=== PATIENT | male | born 1955 | race African-American/Black ===

== ENCOUNTER 2025-04-24 02:58 | Inpatient (IN) | payer MEDICARE, OTHER ==
[~2025-04-24] VITALS: Ht 162.6 cm; Wt 59.2 kg
[2025-04-24] MEDS ORDERED: 0.9% SODIUM CHLORIDE 10 ML SYRINGE IVP PRN (03:45)
[2025-04-24] MEDS: SODIUM CHLORIDE 0.9% 1,150 ML IV ONE (04:05)
[2025-04-24 04:29] LABS: PLATELET COUNT (AUTO) 592 K/uL (150-450); RED BLOOD CELL COUNT(AUTO) 3.32 MIL/uL (4.50-5.90); RED CELL DISTRIBUTION WIDTH 21.3 % (11.5-14.5); WHITE BLOOD COUNT (AUTO) 16.1 K/uL (4.5-11.0)
[2025-04-24 04:43] LABS: LACTIC ACID 1.4 mmol/L (0.4-2.0)
[2025-04-24] MEDS: CefTRIAXone 1 GM/DEXTROSE 50 ML IV ONE (04:45)
[2025-04-24 04:46] LABS: CREATININE 0.65 mg/dL (0.60-1.30); GLUCOSE,RANDOM 110 mg/dL (70-110); SODIUM SERUM 139 mmol/L (136-145); UREA NITROGEN, BLOOD 16 mg/dL (7-18)
[2025-04-24 04:47] LABS: CALCIUM, TOTAL 9.5 mg/dL (8.8-10.5); GLOMERULAR FILTR. RATE CALC > 60 mL/min (>60)
[2025-04-24 05:52] LABS: APPEARANCE,URINE HAZY (CLEAR); GLUCOSE, URINE (UA) NEGATIVE (NEGATIVE); LEUKOCYTE ESTERASE ,URINE LARGE (NEGATIVE); NITRATE,URINE NEGATIVE (NEGATIVE); OCCULT BLOOD,URINE SMALL (NEGATIVE); SPECIFIC GRAVITIY, URINE 1.014 (1.003-1.030)
[2025-04-24 05:56] LABS: % IRON SATURATION 7.2 % (30-44); IRON, SERUM 7.0 mcg/dL (50-175)
[2025-04-24 06:02] LABS: SULFOSALICYLIC ACID,URINE 3+ (Negative)
[2025-04-24 06:03] LABS: SQUAMOUS EPITHELIAL CELL,UR Few /LPF (None Seen)
[2025-04-24] MEDS: SODIUM CHLORIDE 0.9% 500 ML IV ONE (07:00)
[2025-04-24] MEDS: LevETIRAcetam 1,000 MG in DEXTROSE 5%-WATER 100 ML IV SCH (07:40)
[2025-04-24] MEDS: PIPERACILLIN/TAZO 3.375 GM/D5W 50 ML IV SCH (07:41)
[2025-04-24] MEDS: ONDANSETRON HCL 4 MG/2 ML VIAL IVP PRN (07:43)
[2025-04-24] MEDS ORDERED: VANCOMYCIN 1GM/WATER(PEG/NADA) 200 ML IV SCH (08:00)
[2025-04-24] MEDS: VANCOMYCIN 1GM/WATER(PEG/NADA) 200 ML IV ONE (08:52)
[2025-04-24 10:15] VITALS: BP_SYST 102; BP_SYST 104; BP_DIAS 62; BP_DIAS 65; PULSE 99; RESP 18; TEMP 98.1; O2SAT 95
[2025-04-24 11:40] VITALS: BP 109/70; PULSE 113; RESP 19; TEMP 98.4; O2SAT 97
[2025-04-24] MEDS ORDERED: SODIUM CHLORIDE 0.9% 250 ML IV ONE ×2 (13:18→21:42)
[2025-04-24 15:33] VITALS: BP 109/53; PULSE 112; RESP 19; TEMP 98.4; O2SAT 95
[2025-04-24] MEDS: VANCOMYCIN 750 MG/WATER(PEG) 150 ML IV SCH (21:01)
[2025-04-24 21:23] VITALS: BP 105/69; PULSE 110; RESP 18; TEMP 98.1; O2SAT 96
[2025-04-24] MEDS: SODIUM CHLORIDE 0.9% 500 ML IV SCH (23:29)
[2025-04-25] VITALS (12 sets, daily range): BP systolic 108–142; BP diastolic 60–78; PULSE 86–97; RESP 14–19; TEMP 97.7–98.7; O2SAT 97–99
[2025-04-25 07:53] LABS: PLATELET COUNT (AUTO) 496 K/uL (150-450); RED BLOOD CELL COUNT(AUTO) 2.86 MIL/uL (4.50-5.90); RED CELL DISTRIBUTION WIDTH 20.9 % (11.5-14.5); WHITE BLOOD COUNT (AUTO) 13.9 K/uL (4.5-11.0)
[2025-04-25 08:04] LABS: CALCIUM, TOTAL 8.8 mg/dL (8.8-10.5); CREATININE 0.63 mg/dL (0.60-1.30); GLOMERULAR FILTR. RATE CALC > 60 mL/min (>60); GLUCOSE,RANDOM 86 mg/dL (70-110); SODIUM SERUM 142 mmol/L (136-145); UREA NITROGEN, BLOOD 13 mg/dL (7-18)
[2025-04-25 08:28] LABS: RBC MORPHOLOGY COMMENT ABNORMAL RBC MORPH
[2025-04-25] MEDS: HEPARIN SODIUM,PORCINE 5,000 UNITS/ML VIAL SQ SCH (09:53)
[2025-04-25] MEDS ORDERED: SODIUM CHLORIDE 0.9% 1,000 ML ONE (20:07)
[2025-04-26] VITALS: BP 133/75; PULSE 99; RESP 18; TEMP 98.2; O2SAT 97
[2025-04-26 04:10] VITALS: BP 135/80; PULSE 87; RESP 18; TEMP 97.5; O2SAT 98
[2025-04-26 05:39] LABS: PLATELET COUNT (AUTO) 541 K/uL (150-450); RED BLOOD CELL COUNT(AUTO) 3.30 MIL/uL (4.50-5.90); RED CELL DISTRIBUTION WIDTH 22.9 % (11.5-14.5); WHITE BLOOD COUNT (AUTO) 11.1 K/uL (4.5-11.0)
[2025-04-26 05:51] LABS: CALCIUM, TOTAL 9.0 mg/dL (8.8-10.5); CREATININE 0.64 mg/dL (0.60-1.30); GLOMERULAR FILTR. RATE CALC > 60 mL/min (>60); GLUCOSE,RANDOM 97 mg/dL (70-110); SODIUM SERUM 143 mmol/L (136-145); UREA NITROGEN, BLOOD 15 mg/dL (7-18)
[2025-04-26 07:27] LABS: RBC MORPHOLOGY COMMENT ABNORMAL RBC MORPH
[2025-04-26 07:50] VITALS: BP 127/87; PULSE 97; RESP 16; TEMP 98.2; O2SAT 97
[2025-04-26] MEDS: ETHYL ALCOHOL 62% ANTISEPTIC NASAL SANITIZER 0.6 ML AMPUL NASAL SCH (09:15)
[2025-04-26 11:55] VITALS: BP 118/74; PULSE 87; RESP 19; TEMP 97.7; O2SAT 98
[2025-04-26] MEDS: POTASSIUM CHLORIDE 10% 40 MEQ/30 ML LIQUID UDCUP PEG ONE (12:19)
[2025-04-26 15:54] VITALS: BP 136/74; PULSE 94; RESP 17; TEMP 97.9; O2SAT 99
[2025-04-26 20:00] VITALS: BP 108/83; PULSE 84; RESP 18; TEMP 98.2; O2SAT 98
[2025-04-27] VITALS: BP 130/74; PULSE 83; RESP 19; TEMP 97.5; O2SAT 100
[2025-04-27 04:07] VITALS: BP 126/88; PULSE 80; RESP 18; TEMP 97.9; O2SAT 98
[2025-04-27 06:15] LABS: PLATELET COUNT (AUTO) 514 K/uL (150-450); RED BLOOD CELL COUNT(AUTO) 3.16 MIL/uL (4.50-5.90); RED CELL DISTRIBUTION WIDTH 23.4 % (11.5-14.5); WHITE BLOOD COUNT (AUTO) 14.1 K/uL (4.5-11.0)
[2025-04-27 06:22] LABS: CALCIUM, TOTAL 8.9 mg/dL (8.8-10.5); CREATININE 0.55 mg/dL (0.60-1.30); GLOMERULAR FILTR. RATE CALC > 60 mL/min (>60); GLUCOSE,RANDOM 114 mg/dL (70-110); SODIUM SERUM 143 mmol/L (136-145); UREA NITROGEN, BLOOD 11 mg/dL (7-18)
[2025-04-27 06:31] LABS: RBC MORPHOLOGY COMMENT ABNORMAL RBC MORPH
[2025-04-27 08:18] VITALS: BP 131/64; PULSE 80; RESP 19; TEMP 98.4; O2SAT 99
[2025-04-27 11:49] VITALS: BP 118/86; PULSE 78; RESP 19; TEMP 97.7; O2SAT 99
[2025-04-27] MEDS ORDERED: GADOTERATE MEGLUMINE 10 MMOL/20 ML VIAL IVP ONE (13:06)
[2025-04-27 16:00] VITALS: BP 132/73; PULSE 83; RESP 17; TEMP 98.2; O2SAT 100
[2025-04-27 20:00] VITALS: BP 129/67; PULSE 82; RESP 17; TEMP 98.2; O2SAT 99
[2025-04-28] VITALS (7 sets, daily range): BP systolic 129–150; BP diastolic 64–82; PULSE 74–86; RESP 17–18; TEMP 97.9–98.6; O2SAT 97–99
[2025-04-28 06:17] LABS: PLATELET COUNT (AUTO) 505 K/uL (150-450); RED BLOOD CELL COUNT(AUTO) 3.24 MIL/uL (4.50-5.90); RED CELL DISTRIBUTION WIDTH 23.9 % (11.5-14.5); WHITE BLOOD COUNT (AUTO) 12.4 K/uL (4.5-11.0)
[2025-04-28 06:28] LABS: CALCIUM, TOTAL 8.5 mg/dL (8.8-10.5); CREATININE 0.55 mg/dL (0.60-1.30); GLOMERULAR FILTR. RATE CALC > 60 mL/min (>60); GLUCOSE,RANDOM 112 mg/dL (70-110); SODIUM SERUM 143 mmol/L (136-145); UREA NITROGEN, BLOOD 11 mg/dL (7-18)
[2025-04-28 06:42] LABS: RBC MORPHOLOGY COMMENT ABNORMAL RBC MORPH
[2025-04-28] MEDS: ACETAMINOPHEN 325 MG TABLET PO PRN (11:48)
[2025-04-29 03:25] VITALS: BP 142/72; PULSE 82; RESP 17; TEMP 98.4; O2SAT 98
[2025-04-29 06:40] LABS: CALCIUM, TOTAL 8.7 mg/dL (8.8-10.5); CREATININE 0.59 mg/dL (0.60-1.30); GLOMERULAR FILTR. RATE CALC > 60 mL/min (>60); GLUCOSE,RANDOM 113 mg/dL (70-110); SODIUM SERUM 141 mmol/L (136-145); UREA NITROGEN, BLOOD 10 mg/dL (7-18)
[2025-04-29 07:42] VITALS: BP 135/73; PULSE 84; RESP 18; TEMP 97.5; O2SAT 99
[2025-04-29 08:05] LABS: GLUCOMETER DEV NAME(LOC) 5N.2C; GLUCOSE,POINT OF CARE 122 MG/DL (70-110)
[2025-04-29 09:00] LABS: PLATELET COUNT (AUTO) 479 K/uL (150-450); RED BLOOD CELL COUNT(AUTO) 3.41 MIL/uL (4.50-5.90); RED CELL DISTRIBUTION WIDTH 23.9 % (11.5-14.5); WHITE BLOOD COUNT (AUTO) 11.1 K/uL (4.5-11.0)
[2025-04-29 10:34] LABS: RBC MORPHOLOGY COMMENT ABNORMAL RBC MORPH
[2025-04-29 11:15] VITALS: BP 132/69; PULSE 84; RESP 18; TEMP 98.2; O2SAT 98
[2025-04-29 16:17] VITALS: BP 139/73; PULSE 80; RESP 18; TEMP 98.1; O2SAT 99
[2025-04-29 20:00] VITALS: BP 134/77; PULSE 91; RESP 18; TEMP 98.2; O2SAT 99
[2025-04-30] VITALS (7 sets, daily range): BP systolic 112–139; BP diastolic 63–90; PULSE 63–93; RESP 16–18; TEMP 97.5–98.6; O2SAT 98–100
[2025-04-30 06:11] LABS: CALCIUM, TOTAL 8.6 mg/dL (8.8-10.5); CREATININE 0.67 mg/dL (0.60-1.30); GLOMERULAR FILTR. RATE CALC > 60 mL/min (>60); GLUCOSE,RANDOM 104 mg/dL (70-110); SODIUM SERUM 141 mmol/L (136-145); UREA NITROGEN, BLOOD 9 mg/dL (7-18)
[2025-04-30] MEDS ORDERED: BACL5SOL2 GT (13:44)
[2025-04-30] MEDS ORDERED: DOCU50LI40 GT (13:44)
[2025-04-30] MEDS ORDERED: LEVE500S33 GT (13:44)
[2025-04-30] MEDS ORDERED: FAMO-290 GT (13:44)
[2025-04-30] MEDS ORDERED: ASCO500C18 PO (13:52)
[2025-04-30] MEDS ORDERED: OXYC-708 GT (13:52)
[2025-04-30] MEDS ORDERED: SIME80TA13 GT (13:52)
[2025-04-30] MEDS: CIPROFLOXACIN HCL 250 MG TABLET PO SCH (20:30)
[2025-05-01 03:26] VITALS: BP 142/76; PULSE 78; RESP 18; TEMP 98.4; O2SAT 99
[2025-05-01 06:33] LABS: CALCIUM, TOTAL 8.9 mg/dL (8.8-10.5); CREATININE 0.60 mg/dL (0.60-1.30); GLOMERULAR FILTR. RATE CALC > 60 mL/min (>60); GLUCOSE,RANDOM 95 mg/dL (70-110); SODIUM SERUM 142 mmol/L (136-145); UREA NITROGEN, BLOOD 12 mg/dL (7-18)
[2025-05-01 09:00] VITALS: BP 136/74; PULSE 77; RESP 16; TEMP 98.1; O2SAT 98
[2025-05-01] MEDS ORDERED: NALO4SPR NASAL (14:07)
[2025-05-01] MEDS ORDERED: OXYC5SOL GT (14:07)
[2025-05-01] MEDS ORDERED: BACL10TA GT (14:07)
[2025-05-01] MEDS ORDERED: FAMO20 GT (14:07)
[2025-05-01] MEDS ORDERED: ASCO500 GT (14:07)
[2025-05-01] MEDS: LIDOCAINE 2%/EPI 1:200,000/PF 10 ML VIAL CAUDAL ONE (14:55)
[2025-05-01] MEDS: LIDOCAINE 2% 6 ML JELLY TP ONE (14:56)
[2025-05-01 16:30] VITALS: BP 144/80; PULSE 77; RESP 16; TEMP 98.1; O2SAT 98
[2025-05-01 19:46] VITALS: BP 123/80; PULSE 99; RESP 17; TEMP 97.9; O2SAT 97
[2025-05-02] VITALS (7 sets, daily range): BP systolic 121–160; BP diastolic 66–97; PULSE 77–99; RESP 16–18; TEMP 97.3–99.1; O2SAT 95–100
[2025-05-02 07:04] LABS: CALCIUM, TOTAL 8.8 mg/dL (8.8-10.5); CREATININE 0.56 mg/dL (0.60-1.30); GLOMERULAR FILTR. RATE CALC > 60 mL/min (>60); GLUCOSE,RANDOM 109 mg/dL (70-110); SODIUM SERUM 140 mmol/L (136-145); UREA NITROGEN, BLOOD 15 mg/dL (7-18)
[2025-05-02] MEDS: BACLOFEN 10 MG TABLET GT PRN (12:03)
[2025-05-03 04:38] VITALS: BP 143/78; RESP 18; TEMP 98.6; O2SAT 98
[2025-05-03 04:56] VITALS: PULSE 92
[2025-05-03 06:56] LABS: CALCIUM, TOTAL 8.7 mg/dL (8.8-10.5); CREATININE 0.57 mg/dL (0.60-1.30); GLOMERULAR FILTR. RATE CALC > 60 mL/min (>60); GLUCOSE,RANDOM 98 mg/dL (70-110); SODIUM SERUM 139 mmol/L (136-145); UREA NITROGEN, BLOOD 14 mg/dL (7-18)
[2025-05-03 08:00] VITALS: BP 134/70; PULSE 91; RESP 19; TEMP 97.9; O2SAT 99
== END 2025-05-03 14:55 | DRG 871 ==
LOC: EMS 03:22 → EDH 06:02 → 5N 09:30 → 6S 05-02 14:33
PROVIDERS: ADMIT Internal Medicine; ATTEND Internal Medicine
PROC: 30233N1 Transfusion of Nonautologous Red Blood Cells into Peripheral Vein, Percutaneous Approach (ICD-10-PCS; 2025-04-25)
PROC: 05HY33Z Insertion of Infusion Device into Upper Vein, Percutaneous Approach (ICD-10-PCS; principal; 2025-04-30)
PROC: B54MZZA Ultrasonography of Right Upper Extremity Veins, Guidance (ICD-10-PCS; 2025-04-30)
DX: A41.9 Sepsis, unspecified organism (principal); E43 Unspecified severe protein-calorie malnutrition; G82.50 Quadriplegia, unspecified; L89.154 Pressure ulcer of sacral region, stage 4; M46.28 Osteomyelitis of vertebra, sacral and sacrococcygeal region; N39.0 Urinary tract infection, site not specified; G40.909 Epilepsy, unspecified, not intractable, without status epilepticus; D64.9 Anemia, unspecified; B96.5 Pseudomonas (aeruginosa) (mallei) (pseudomallei) as the cause of diseases classified elsewhere; K21.9 Gastro-esophageal reflux disease without esophagitis; R13.10 Dysphagia, unspecified; I50.9 Heart failure, unspecified; I69.320 Aphasia following cerebral infarction; Z93.3 Colostomy status; Z74.01 Bed confinement status; Z93.1 Gastrostomy status; Z68.22 Body mass index [BMI] 22.0-22.9, adult
CPT/HCPCS: 36245; 36569; 51702; 71045; 72170; 76937; 80048; 80202; 81001; 81002; 82271; 82962; 83540; 83550; 83605; 83735; 84145; 85025; 85045; 85610; 85651; 86140; 86850; 86900; 86901; 86923; 87040; 87070; 87081; 87086; 87186; 87205; 93005; 96361; 96365; 96366; 96367; 96375; 99291; G0378; J0696; J0712; J1644; J2405; J2543; J7030; J7040; J7050; J7060; P9016; 36415-L1; 36415-TC; J2003

== ENCOUNTER 2025-05-06 11:04 | Emergency (ER) | payer MEDICARE, OTHER ==
[~2025-05-06] VITALS: Ht 177.8 cm; Wt 50.0 kg
[~2025-05-06 11:04] MED LIST: ASCO500 GT; BACL10TA GT; DOCU50LI40 GT; FAMO20 GT; LEVE500S33 GT; NALO4SPR NASAL; SIME80TA13 GT
[2025-05-06 11:13] VITALS: TEMP 98.4
[2025-05-06] MEDS ORDERED: OXYC5SOL GT (12:42)
[2025-05-06] MEDS ORDERED: DIATRIZOATE MEGLU/SOD 660/100 MG/ML 120 ML BOTTLE ONE (12:44)
[2025-05-06] MEDS: DIATRIZOATE MEGLU/SOD 660/100 MG/ML 120 ML BOTTLE GT ONE (13:04)
[2025-05-06 13:17] VITALS: BP 133/73; PULSE 98; RESP 17; O2SAT 97
== END 2025-05-06 14:59 | disposition home or self-care (01) ==
LOC: EMS 11:04
DX: Z43.1 Encounter for attention to gastrostomy (principal); I50.9 Heart failure, unspecified; K21.9 Gastro-esophageal reflux disease without esophagitis; Z86.73 Personal history of transient ischemic attack (TIA), and cerebral infarction without residual deficits
CPT/HCPCS: 99284; 43762; 74018; Q9963